=== PATIENT | female | born 1955 | race Caucasian/White ===

== ENCOUNTER 2022-12-22 13:44 | Emergency (ER) | payer MEDICARE ==
[~2022-12-22] VITALS: Ht 165.1 cm; Wt 91.6 kg
[~2022-12-22 13:44] MED LIST: GLUC-160 PO; VIT1CAPS15 PO
[2022-12-22 13:55] VITALS: BP 150/73
--- NOTE | 2022-12-22 14:13 | ED Abdominal Pain ---
General Chief Complaint: Abdominal/GI Problems Stated Complaint: ABD PAIN Nursing Triage Note: PT AMB TO ED BY POV WITH C/O EPIGASTRIC PAIN BEGINNING AROUND 0500 THIS MORNING ACCOMPAINED WITH N/V. PT REPORTS TAKING TUMS AND ROLAIDS WITH LITTLE RELIEF. LBM THIS MORNING, NORMAL FOR PT. Source of Information: Patient Exam Limitations: No Limitations History of Present Illness Date Seen by Provider: Dec 22, 2022 Time Seen by Provider: 13:50 Initial Comments 67-year-old female presents to the ER with complaint of epigastric pain starting at 5 AM this morning. States the pain woke her up from sleep. She describes the pain as sharp stabbing and states that it fluctuates. She reports nausea and vomiting with the pain, states she has vomited twice. She reports tightness in her mid back that radiates around to her abdomen. Denies feeling as though the pain goes straight through from her epigastric region to her back. She states she has tried Tums and Rolaids without relief. Last bowel movement was this morning and normal. Denies fevers, chest pain, shortness of air, dysuria. Allergies and Home Medications Allergies Coded Allergies: No Known Drug Allergies (Unverified , 08/18/14) Patient Home Medication List Home Medication List Reviewed: Yes Glucosamine/D3/Boswellia Nell (Glucosamine Complex Tablet) 1 Each Tablet, 1 EACH PO DAILY, (Reported) Entered as Reported by: PETER ALBA on 08/18/14 0848 Hydrocodone/Acetaminophen (Hydrocodone-Acetamin 5-325 mg) 5 Mg-325 Mg Tablet, 1 TAB PO Q4H PRN for PAIN-MODERATE (5-7) Prescribed by: Cecilia Alegria on 12/22/22 1633 Vit E/Tocotrienol Alise Killian Del (Maxilife Rice 50 Mg Capsule) 1 Each Capsule, 1 EACH PO DAILY, (Reported) Entered as Reported by: PETER ALBA on 08/18/14 0848 Review of Systems Review of Systems Constitutional: see HPI Past Eeeddmf-Nhuvha-Dhthiv Hx Patient Social History Tobacco Use?: No Smoking Status: Former Smoker Use of E-Cig and/or Vaping dev: No Substance use?: No Alcohol Use?: No Pt feels they are or have been: No Past Medical History Surgery/Hospitalization HX: HTN C SECT Physical Exam Vital Signs Vital Signs - First Documented 12/22/22 13:55 Temp 35.8 Pulse 66 Resp 16 B/P (MAP) 150/73 (98) Pulse Ox 96 O2 Delivery Room Air Capillary Refill : Less Than 3 Seconds Height/Weight/BMI Height: 5'5.00" Weight: 171lbs. oz. [id number]; 33.00 BMI Method: General Appearance: WD/WN, mild distress Neck: supple, normal inspection Respiratory: lungs clear, normal breath sounds, no respiratory distress, no accessory muscle use Cardiovascular: regular rate, rhythm Gastrointestinal: normal bowel sounds, soft, guarding (Right upper quadrant), tenderness (Epigastric and right upper quadrant) Extremities: normal range of motion, normal inspection Neurologic/Psychiatric: alert, normal mood/affect Skin: normal color, warm/dry Progress/Results/Core Measures Results/Orders Lab Results Laboratory Tests Test 12/22/22 14:00 12/22/22 15:35 Range/Units White Blood Count 10.0 4.3-11.0 10^3/uL Red Blood Count 4.90 3.80-5.11 10^6/uL Hemoglobin 15.0 11.5-16.0 g/dL Hematocrit 45 35-52 % Mean Corpuscular Volume 92 80-99 fL Mean Corpuscular Hemoglobin 31 25-34 pg Mean Corpuscular Hemoglobin Concent 33 32-36 g/dL Red Cell Distribution Width 13.0 10.0-14.5 % Platelet Count 220 130-400 10^3/uL Mean Platelet Volume 11.2 9.0-12.2 fL Immature Granulocyte % (Auto) 0 % Neutrophils (%) (Auto) 89 H 42-75 % Lymphocytes (%) (Auto) 8 L 12-44 % Monocytes (%) (Auto) 3 0-12 % Eosinophils (%) (Auto) 0 0-10 % Basophils (%) (Auto) 0 0-10 % Neutrophils # (Auto) 8.9 H 1.8-7.8 10^3/uL Lymphocytes # (Auto) 0.8 L 1.0-4.0 10^3/uL Monocytes # (Auto) 0.3 0.0-1.0 10^3/uL Eosinophils # (Auto) 0.0 0.0-0.3 10^3/uL Basophils # (Auto) 0.0 0.0-0.1 10^3/uL Immature Granulocyte # (Auto) 0.0 0.0-0.1 10^3/uL Neutrophils % (Manual) 91 % Lymphocytes % (Manual) 6 % Monocytes % (Manual) 3 % Platelet Estimate ADEQUATE Blood Morphology Comment NORMAL Sodium Level 139 135-145 MMOL/L Potassium Level 4.1 3.6-5.0 MMOL/L Chloride Level 105 98-107 MMOL/L Carbon Dioxide Level 24 21-32 MMOL/L Anion Gap 10 5-14 MMOL/L Blood Urea Nitrogen 16 7-18 MG/DL Creatinine 1.02 0.60-1.30 MG/DL Estimat Glomerular Filtration Rate 60 BUN/Creatinine Ratio 16 Glucose Level 160 H 70-105 MG/DL Calcium Level 10.5 H 8.5-10.1 MG/DL Corrected Calcium 10.3 H 8.5-10.1 MG/DL Magnesium Level 2.0 1.6-2.4 MG/DL Total Bilirubin 0.4 0.1-1.0 MG/DL Aspartate Amino Transf (AST/SGOT) 19 5-34 U/L Alanine Aminotransferase (ALT/SGPT) 22 0-55 U/L Alkaline Phosphatase 57 40-136 U/L Troponin I < 0.028 <0.028 NG/ML Total Protein 7.3 6.4-8.2 GM/DL Albumin 4.3 3.2-4.5 GM/DL Lipase 36 8-78 U/L Urine Color YELLOW Urine Clarity SLIGHTLY CLOUDY Urine pH 5.0 5-9 Urine Specific [place] >=1.030 1.016-1.022 Urine Protein 1+ H NEGATIVE Urine Glucose (UA) NEGATIVE NEGATIVE Urine Ketones NEGATIVE NEGATIVE Urine Nitrite NEGATIVE NEGATIVE Urine Bilirubin NEGATIVE NEGATIVE Urine Urobilinogen 0.2 < = 1.0 MG/DL Urine Leukocyte Esterase TRACE H NEGATIVE Urine RBC (Auto) NEGATIVE NEGATIVE Urine RBC NONE /HPF Urine WBC 0-2 /HPF Urine Squamous Epithelial Cells >50 H /HPF Urine Crystals PRESENT H /LPF Urine Amorphous Sediment LARGE MARAL URATES H /LPF Urine Bacteria FEW H /HPF Urine Casts NONE /LPF Urine Mucus SMALL H /LPF Urine Culture Indicated NO My Orders Orders - CECILIA ALLEN BLACK TOPPER Ekg Tracing (12/22/22 14:01) Comprehensive Metabolic Panel (12/22/22 14:04) Lipase (12/22/22 14:04) Ua Culture If Indicated (12/22/22 14:04) Ed Iv/Invasive Line Start (12/22/22 14:04) Cbc With Automated Diff (12/22/22 14:04) Magnesium (12/22/22 14:04) Monitor-Rhythm Ecg Trace Only (12/22/22 14:04) Troponin I [place] (12/22/22 14:04) Chest 1 View, Ap/Pa Only (12/22/22 14:04) Us Gallbladder [id number] (12/22/22 14:04) Ondansetron Injection (Ondansetron Inj (12/22/22 14:15) Fentanyl Injection (Fentanyl Injection (12/22/22 14:15) Manual Differential (12/22/22 14:00) Ns Iv 1000 Ml (Ns Iv 1000 Ml) (12/22/22 16:00) Antacid Suspension (Antacid Suspension (12/22/22 16:00) Lidocaine 2% Viscous 15 Ml (Xylocaine Vi (12/22/22 16:00) Hydrocodone/Apap 5/325 Tablet (Hydrocod (12/22/22 16:15) Medications Given in ED Current Medications Medications Dose Ordered Sig/Jannie Route Start Time Stop Time Status Last Admin Dose Admin Acetaminophen/ Hydrocodone Bitart 1 ea ONCE ONCE PO 12/22/22 16:15 12/22/22 16:16 DC 12/22/22 16:24 1 EA Al Hydrox/Mg Hydrox/Simethicone 30 ml ONCE ONCE PO 12/22/22 16:00 12/22/22 16:01 DC 12/22/22 16:00 30 ML Fentanyl Citrate 50 mcg ONCE ONCE IVP 12/22/22 14:15 12/22/22 14:16 DC 12/22/22 14:17 50 MCG Lidocaine HCl 15 ml ONCE ONCE PO 12/22/22 16:00 12/22/22 16:01 DC 12/22/22 15:59 15 ML Ondansetron HCl 4 mg ONCE ONCE IVP 12/22/22 14:15 12/22/22 14:16 DC 12/22/22 14:13 4 MG Vital Signs/I&O 12/22/22 13:55 Temp 35.8 Pulse 66 Resp 16 B/P (MAP) 150/73 (98) Pulse Ox 96 O2 Delivery Room Air Blood Pressure Mean: 98 Progress Progress Note : Progress Note Patient seen and evaluated, resting in bed, mild distress. Based on exam and symptoms, differential diagnosis includes but is not limited to cholelithiasis, gastric reflux, pancreatitis, OR. Work-up initiated including CBC, CMP, lipase, troponin, magnesium, chest x-ray, ultrasound gallbladder, EKG. Zofran and fentanyl ordered. 1630 Labs and imaging reviewed. CBC shows elevated neutrophil percentage 89. CMP shows elevated glucose 160. Calcium slightly elevated 10.5. Troponin negative. Lipase normal. Urinalysis shows trace leukocytes, 0-2 WBCs, greater than 50 squamous epithelial cells, few bacteria. Specimen is contaminated. Chest x-ray shows no acute abnormalities. Gallbladder ultrasound shows hepatic stenosis and Colecystolithiasis. No evidence of cholecystitis. I believe that pain may still be related to gallbladder since it is colicky in nature. Results discussed with patient. Will discharge patient with prescription for pain medication and surgery follow-up. Discharge instructions and return precautions provided. Initial ECG Impression Date: Dec 22, 2022 Initial ECG Impression Time: 14:04 Initial ECG Rate: 60 Initial ECG Rhythm: Normal Sinus Initial ECG Intervals: Normal Initial ECG Impression: Nonspecific Changes Initial ECG Comparisson: No Previous ECG Available Diagnostic Imaging Diagonstic Imaging: Xray Plain Films/CT/US/NM/MRI: chest Comments [facility] [place], [place] NAME: REEMA ANTON [facility] REC#: [id number] PT STATUS: REG ER : 1955 PHYSICIAN: CECILIA ALLEN APRN ADMIT DATE: 12/22/22/ER Signed Date of Exam:12/22/22 CHEST 1 VIEW, AP/PA ONLY INDICATION: Epigastric pain. EXAMINATION: Portable chest at 02:16 p.m. FINDINGS: Heart size and pulmonary vascularity are normal. Lungs are clear. There are no effusions or pneumothoraces. IMPRESSION: No acute abnormalities in the chest. Dictated by: Dictated on workstation # [id number] Dict: 12/22/22 1440 Trans: 12/22/22 1517 [id number] Interpreted by: MITUL MORSE MD Electronically signed by: MITUL MORSE MD 12/22/22 1517 Diagonstic Imaging: Ultrasound Plain Films/CT/US/NM/MRI: abdomen Comments [facility] [place], [place] NAME: REEMA ANTON [facility] REC#: [id number] PT STATUS: REG ER : 1955 PHYSICIAN: CECILIA ALLEN APRN ADMIT DATE: 12/22/22/ER Signed Date of Exam:12/22/22 US GALLBLADDER [id number] PROCEDURE: US Gallbladder. TECHNIQUE: Multiple real-time grayscale images were obtained over the right upper quadrant in various projections. INDICATION: Right upper quadrant pain. FINDINGS: Liver has increased echogenicity suggesting fatty infiltration. There are stones in the gallbladder. Gallbladder wall is not thickened. The common duct is not dilated. Visualized portions of the pancreas appear normal. The aorta was obscured. IVC is patent. Right kidney measures 9 cm in length and appears normal. There is no ascites. IMPRESSION: Hepatic steatosis. Cholecystolithiasis. Dictated by: Dictated on workstation # [id number] Dict: 12/22/22 1531 Trans: 12/22/22 1640 [facility] [id number] Interpreted by: MITUL MORSE MD Electronically signed by: MITUL MORSE MD 12/22/22 1640 Departure Impression Primary Impression: Abdominal pain Disposition: 01 HOME, SELF-CARE Condition: Stable Departure-Patient Inst. Decision time for Depature: 16:30 Referrals: ELIS DAVILA MAYRA L APRN (PCP) Primary Care Physician Patient Instructions: Gallstones (DC) Add. Discharge Instructions: The pain you are experiencing may be related to gallstones. Take [place] as needed for pain. It can make you sleepy. It can also cause constipation, you may take a stool softener with it to prevent this. Follow-up with surgery regarding the gallstones. Return for any other new, concerning, or worsening symptoms. All discharge instructions reviewed with patient and/or family. Voiced understanding. Scripts Hydrocodone/Acetaminophen (Hydrocodone-Acetamin 5-325 mg) 5 Mg-325 Mg Tablet 1 TAB PO Q4H PRN for PAIN-MODERATE (5-7), #15 TAB 0 Refills Prov: CECILIA ALLEN APRN 12/22/22 CECILIA ALLEN APRN Dec 22, 2022 14:13
[2022-12-22] MEDS ORDERED: ONDANSETRON INJECTION 4 MG/2 ML (SDV) IVP ONE (14:15)
[2022-12-22] MEDS ORDERED: fentaNYL INJECTION 100 MCG/2 ML VIAL IVP ONE (14:15)
[2022-12-22 14:16] LABS: BASOPHILS % (AUTO) 0 % (0-10); EOSINOPHILS % (AUTO) 0 % (0-10); HEMATOCRIT 45 % (35-52); LYMPHOCYTES # (AUTO) 0.8 10^3/uL (1.0-4.0); LYMPHOCYTES % (AUTO) 8 % (12-44); MEAN CORPUSCULAR HEMOGLOBIN 31 pg (25-34); MEAN CORPUSCULAR HGB CONC 33 g/dL (32-36); MEAN CORPUSCULAR VOLUME 92 fL (80-99); MEAN PLATELET VOLUME 11.2 fL (9.0-12.2); MONOCYTES # (AUTO) 0.3 10^3/uL (0.0-1.0); MONOCYTES % (AUTO) 3 % (0-12); NEUTROPHILS # (AUTO) 8.9 10^3/uL (1.8-7.8); NEUTROPHILS % (AUTO) 89 % (42-75); PLATELET COUNT 220 10^3/uL (130-400)
[2022-12-22 14:33] LABS: ALBUMIN 4.3 GM/DL (3.2-4.5)
[2022-12-22 14:34] LABS: CHLORIDE 105 MMOL/L (98-107); POTASSIUM 4.1 MMOL/L (3.6-5.0); SODIUM 139 MMOL/L (135-145)
[2022-12-22 14:35] LABS: CALCIUM 10.5 MG/DL (8.5-10.1)
[2022-12-22 14:36] LABS: GLUCOSE 160 MG/DL (70-105); TOTAL PROTEIN 7.3 GM/DL (6.4-8.2)
[2022-12-22 14:37] LABS: CARBON DIOXIDE 24 MMOL/L (21-32)
[2022-12-22 14:38] LABS: BILIRUBIN,TOTAL 0.4 MG/DL (0.1-1.0)
[2022-12-22 14:39] LABS: ALKALINE PHOSPHATASE 57 U/L (40-136)
[2022-12-22 14:40] LABS: CREATININE SERUM 1.02 MG/DL (0.60-1.30); GFR ESTIMATED 60
[2022-12-22 14:41] LABS: BUN/CREATININE RATIO 16
[2022-12-22 14:43] LABS: ALANINE AMINOTRANSFERASE 22 U/L (0-55); LYMPHOCYTES % (MANUAL) 6 %; MONOCYTES % (MANUAL) 3 %; NEUTROPHILS % (MANUAL) 91 %; PLATELET ESTIMATE ADEQUATE; RBC MORPH NORMAL
--- NOTE | 2022-12-22 14:43 | Diagnostic Imaging Report ---
INDICATION: Epigastric pain. EXAMINATION: Portable chest at 02:16 p.m. FINDINGS: Heart size and pulmonary vascularity are normal. Lungs are clear. There are no effusions or pneumothoraces. IMPRESSION: No acute abnormalities in the chest. Dictated by: Dictated on workstation # [id number]
[2022-12-22 14:44] LABS: LIPASE 36 U/L (8-78)
--- NOTE | 2022-12-22 15:35 | Diagnostic Imaging Report ---
PROCEDURE: US Gallbladder. TECHNIQUE: Multiple real-time grayscale images were obtained over the right upper quadrant in various projections. INDICATION: Right upper quadrant pain. FINDINGS: Liver has increased echogenicity suggesting fatty infiltration. There are stones in the gallbladder. Gallbladder wall is not thickened. The common duct is not dilated. Visualized portions of the pancreas appear normal. The aorta was obscured. IVC is patent. Right kidney measures 9 cm in length and appears normal. There is no ascites. IMPRESSION: Hepatic steatosis. Cholecystolithiasis. Dictated by: Dictated on workstation # [id number]
[2022-12-22] MEDS ORDERED: LIDOCAINE 2% VISCOUS 15 ML UDC PO ONE (16:00)
[2022-12-22] MEDS ORDERED: NS IV 1000 ML 1,000 ML IV SCH (16:00)
[2022-12-22] MEDS ORDERED: ANTACID SUSPENSION 30 ML UDC PO ONE (16:00)
[2022-12-22 16:08] LABS: AMORPHOUS SEDIMENT,UR LARGE AMOR URATES /LPF; BACTERIA,URINE FEW /HPF; BILIRUBIN,URINE NEGATIVE (NEGATIVE); CLARITY,URINE SLIGHTLY CLOUDY; COLOR,URINE YELLOW; GLUCOSE, URINE (UA) NEGATIVE (NEGATIVE); KETONES,URINE NEGATIVE (NEGATIVE); LEUKOCYTE ESTERASE ,URINE TRACE (NEGATIVE); NITRITE,URINE NEGATIVE (NEGATIVE); PROTEIN,URINE 1+ (NEGATIVE); SQUAMOUS EPITHELIAL CELL,UR >50 /HPF; WBC,URINE 0-2 /HPF
[2022-12-22] MEDS ORDERED: HYDROcodone/ACETAMINOPHEN 5 MG/325 MG TABLET PO ONE (16:15)
[2022-12-22] MEDS ORDERED: ACHD5005 PO (16:32)
== END 2022-12-22 16:42 | disposition home or self-care (01) ==
LOC: EDUNIT# 13:44 → ER 13:47
DX: R10.13 Epigastric pain (principal); R79.89 Other specified abnormal findings of blood chemistry; Z87.891 Personal history of nicotine dependence
CPT/HCPCS: 36415; 71045; 76705; 80053; 81000; 83690; 83735; 84484; 85007; 85027; 93005; 93041